=== PATIENT | female | born 1980 | race Two or more races ===

== ENCOUNTER 2016-08-02 20:23 | Emergency (ER) | payer MEDICARE, MEDICAID ==
--- NOTE | 2016-08-03 09:13 | ER ---
ADMIT: 08/02/2016 RM/LOC: ER [facility] MR#: [id number] [address] [id number] EDDI WALKER [address] [place] [address] Emergency Room Report SEX: F AGE: 36 : 1980 DATE: 08/02/2016 HISTORY OF PRESENT ILLNESS: A 36-year-old female with cough, fever, headache, runny nose. She just does do not feel good, body ache. Her son was diagnosed with influenza about a week ago. She says she has been having issues with upper respiratory discomfort for about a week now, runny nose, headache, sore throat, cough. REVIEW OF SYSTEMS: Otherwise review of systems is negative. PAST MEDICAL HISTORY: Strep and influenza in May. She also has history of sinus bradycardia and borderline personality. She has had a lap band in 2008, tubal ligation, partial hysterectomy with right oophorectomy. MEDICATIONS: She takes: 1. Geodon. 2. Zoloft. 3. Klonopin. 4. Vyplara. ALLERGIES: ALLERGIC TO MORPHINE AND SULFA. SOCIAL HISTORY: Smoker, half a pack a day. PHYSICAL EXAMINATION: GENERAL: She just looks miserable. VITAL SIGNS: Blood pressure 128/68, heart rate 88, respirations 20, temperature 98.8, O2 sats 96%. HEENT: She has mucosal edema in the nose. Posterior pharynx is clear. Airway is patent. NECK: Supple. RESPIRATIONS: No distress. ABDOMEN: Nontender. CVS: Regular in rate and rhythm. SKIN: Good color and turgor. NEUROLOGIC: Oriented x4. Influenza positive for B. She is given a prescription of Tessalon Perles for home use. She is past the time where we can give her Tamiflu to help with her symptoms. She is getting a shot of Toradol and Phenergan for headache and instructions to follow up with primary provider for her influenza symptoms. PATRICIO Melchor / Rodriugez Tran MD / mac JOB #: [id number] CC: Rodriguez Tarn MD, Attending Physician Carolina Brown MD, Family Physician
== END 2016-08-02 21:35 | disposition home or self-care (01) ==
LOC: ER 20:23
DX: J10.1 Influenza due to other identified influenza virus with other respiratory manifestations (principal); F17.210 Nicotine dependence, cigarettes, uncomplicated; Z88.2 Allergy status to sulfonamides; Z88.5 Allergy status to narcotic agent; Z79.899 Other long term (current) drug therapy; Z98.84 Bariatric surgery status